=== PATIENT | male | born 1995 | race Caucasian/White ===

== ENCOUNTER 2024-11-14 06:23 | Emergency (ER) | payer SELFPAY ==
[2024-11-14 06:25] VITALS: BMI 23.6
[2024-11-14 06:28] VITALS: BP 142/83; PULSE 90; RESP 18; TEMP 36.6; O2SAT 98
--- NOTE | 2024-11-14 06:34 | XR_ITS ---
Examination: Foot, left, 3 views Technique: AP, oblique, lateral views foot, 3 views Date and time of exam: November 14, 2024 0653 hours INDICATIONS: Patient fell yesterday with injury to the foot, foot pain FINDINGS: 11 mm chip fracture off the dorsal base of probably the first metatarsal, noted on the lateral view. No dislocation No foreign body IMPRESSION: Recommend CT foot without contrast follow-up to confirm 11 mm chip fracture off the dorsal base of the first metatarsal
--- NOTE | 2024-11-14 07:15 | XR_ITS ---
Examination: CT left foot, without contrast. 2-D sagittal reconstructions. 2-D coronal reconstructions. 3-D reconstructions. Date and time of exam:November 14, 2024 0800 hours INDICATIONS: Injured foot yesterday, foot pain CTDI: vol (mGy):4.31 DLP: (mGycm):145 Technique: Multiple 1.25 mm axial sections of the left foot without intravenous contrast have been obtained. 2-D sagittal and coronal reconstructions have been obtained. 3-D reconstructions have been obtained. Low dose protocols were performed. One or more of the following dose reduction techniques were used; automated exposure control, adjustment of the mA and/or KV according to patient size, use of iterative reconstruction technique. Findings: 10 mm acute chip fracture off the dorsal base of the first metatarsal sagittal image 56 Small comminuted fractures base of the second metatarsal for instance sagittal image 50 Small fractures off the distal lateral aspect of the medial cuneiform coronal image 33 Digits intact Impression: 10 mm acute chip fracture off the dorsal base of the first metatarsal Small multiple comminuted fractures base of the second metatarsal Small comminuted fractures of the distal lateral aspect of the medial cuneiform
[2024-11-14 08:36] VITALS: BP 138/84; PULSE 72; RESP 19; TEMP 36.8; O2SAT 100
--- NOTE | 2024-11-14 09:48 | PD.EDFALL ---
ED Fall Injury RME/HPI General Chief Complaint: Fall Stated Complaint: SLIPPED AND FALL AT WORK Time Seen by Provider: 11/14/24 06:26 Arrival date/time: 11/14/24 06:23 28-year-old male presents to the emergency department as having slipped off of a piece of equipment yesterday at work injuring his left foot patient reports swelling to left foot today Limitations: no limitations Related Data Previous Rx's ?Medication ?Instructions ?Recorded ibuprofen 800 mg tablet 800 mg PO TID PRN pain #30 tabs 11/14/24 Allergies Allergy/AdvReac Type Severity Reaction Status Date / Time Penicillins Allergy Verified 11/14/24 06:24 Review of Systems Review of Systems Systems Reviewed: All systems reviewed, normal except as documented Constitutional Constitutional: Reports system reviewed and no additional complaints, except as documented, Denies fever(s) and Denies headache(s) Eyes Eyes: Reports system reviewed and no additional complaints, except as documented and Denies blurry vision ENT Ears, Nose, Mouth, and Throat: Reports system reviewed and no additional complaints, except as documented, Denies headache(s), Denies nasal congestion and Denies nasal discharge Cardiovascular Cardiovascular: Reports system reviewed and no additional complaints, except as documented, Denies chest pain and Denies dyspnea Respiratory Respiratory: Reports system reviewed and no additional complaints, except as documented, Denies chest congestion, Denies cough and Denies dyspnea Gastrointestinal Gastrointestinal: Reports system reviewed and no additional complaints, except as documented and Denies abdominal pain Musculoskeletal Musculoskeletal: Reports system reviewed and no additional complaints, except as documented, Reports abnormal gait, Reports arthralgias, Denies deformity, Reports joint swelling, Denies numbness, Reports stiffness and Denies tingling Integumentary/Breasts Skin/Breast: Reports system reviewed and no additional complaints, except as documented and Denies rash Neurologic Neurologic: Reports system reviewed and no additional complaints, except as documented, Reports as per HPI, Reports abnormal gait, Denies headache(s), Denies numbness and Denies tingling Past Medical History Social History SMOKING STATUS: Never smoker ED Exam General Limitations: Present no limitations General appearance: Present alert and in no apparent distress Head Head exam: Present atraumatic Eye Eye exam: Present normal appearance, PERRL and EOMI ENT ENT exam: Present normal exam, normal oropharynx and mucous membranes moist Neck Neck exam: Present normal inspection, full ROM and trachea midline Chest Chest inspection: Present normal inspection and symmetric chest wall rise Respiratory Respiratory exam: Present normal lung sounds bilaterally Cardiovascular Cardiovascular exam: Present regular rate, normal rhythm and normal heart sounds Abdominal Exam Abdominal exam: Present soft and normal bowel sounds Extremities Exam Extremities exam: Present tenderness, normal capillary refill and joint swelling; Absent pedal edema or calf tenderness Back Exam Back exam: Present normal inspection and full ROM Neurological Exam Neurological exam: Present alert, oriented X3 and CN II-XII intact Psychiatric Psychiatric exam: Present normal affect and normal mood Skin Skin exam: Present warm, dry, intact and normal color Course Quality Measures none Orders Category Date Time Status CT foot LT wo con Stat Exams 11/14/24 07:15 Completed XR foot comp LT min 3V Stat Exams 11/14/24 06:34 Completed Vital Signs Vital signs: Vital Signs Temperature 98 F 11/14/24 06:28 Pulse Rate 90 11/14/24 06:28 Respiratory Rate 18 11/14/24 06:28 Blood Pressure 142/83 H 11/14/24 06:28 Pulse Oximetry (%) 98 11/14/24 06:28 Oxygen Delivery Method Room Air 11/14/24 06:28 O2 saturation 98% on room air with normal limits PROCEDURES: Splint Fabrication: Clinician Made Type: Posterior Leg Reason for Splint: Optimal Positioning and Pain Management Circulation Distal to Splint: Yes Movement Distal to Splint: Yes Senation Distal to Splint: Yes Tolerance: Tolerates Well Fall MDM Narrative MDM Narrative:: 28-year-old male presents to the emergency department as having slipped off of a piece of equipment yesterday at work injuring his left foot patient reports swelling to left foot today On exam patient well-appearing patient does not appear ill or toxic no acute distress patient is swelling of the left foot I suspect patient has fracture X-ray of the foot obtained consistent with fracture CT scan obtained as well which confirms patient has multiple fractures of the foot Patient placed in a posterior short leg splint given crutches Instructed patient to remain nonweightbearing and follow-up with specialist as soon as possible for worsening symptoms return immediately Patient data External records reviewed:: [facility] previous records Clinical information provided by:: patient Social determinants that could affect healthcare access:: none Patient has the following chronic illnesses:: None How is presenting disease/condition affected by chronic disease/condition?: no chronic disease Evaluation data The following diagnostics were reviewed and interpreted by me:: radiology exam(s) Lab and/or radiology exams considered but not ordered:: Radiology obtain Interpretation Summary: By me Medications / Prescriptions Medications or Prescriptions considered but not ordered:: Given Medication administrations:: Given Consultations Consultation(s) initiated? (list below): No Diagnosis Fall Differential Diagnosis: other (Foot fracture, foot sprain) Most likely diagnosis given after review of the tests above:: Foot fracture Admission Indicated Admission indicated?: not indicated Admission Request Was there a request for admission?: No Disposition Plan Disposition Plan: Discharge Discharge Attestation Discharge Attestation: The patient and all family members were given an opportunity to ask questions and understood the discharge instructions. Discharge instructions specifically effects, indications for sooner follow up or return to the emergency department, and the expected course of current diagnosis. Patient condition: Stable Discharge Plan Plan Patient Disposition: HOME (Self Care) Discharge Disposition comment: Stable Prescriptions/Referrals Prescriptions/Med Rec: New ibuprofen 800 mg tablet 800 mg PO TID PRN (Reason: pain) Qty: 30 0RF Referrals: No Primary/Family,Physician [Primary Care Provider] - 11/16/24 Problem List Clinical Impression: Fracture of left foot, Work related injury Patient/Caregiver Discharge Instructions Education Materials: ED Fracture, Foot Additional Instructions: Please follow up with your Workmen's Compensation provider in the next 24-48hrs for any worsening symptoms return here immediately Print Language: Malaysian Stand Alone Forms: Marisa Award Info., Patient Portal Info Letter CONNIE/TERE Supervising Physician CONNIE/TERE Supervising Physician: Dr [email or web address]
== END 2024-11-14 10:25 | disposition home or self-care (01) ==
PROVIDERS: Emergency Provider Nurse Practitioner Primary Care
DX: S92.312A Displaced fracture of first metatarsal bone, left foot, initial encounter for closed fracture (principal); S92.322A Displaced fracture of second metatarsal bone, left foot, initial encounter for closed fracture; W17.89XA Other fall from one level to another, initial encounter; Y93.39 Activity, other involving climbing, rappelling and jumping off; Y99.0 Civilian activity done for income or pay; Z88.0 Allergy status to penicillin
CPT/HCPCS: 29515; 73630; 73700; 99284